=== PATIENT | female | born 1940 | race Caucasian/White ===

== ENCOUNTER 2019-06-29 10:09 | Emergency (ER) | payer MEDICARE ==
[~2019-06-29 10:09] MED LIST: CALC-1030 PO; CLOB15CR5 TP; ERGO500014 PO; IBUP-2076 PO; LOVA40TA2 PO; OMEP40CA13 PO; PARO10TA87 PO; ROPI1TAB38 PO; TRAZ-185 PO
[2019-06-29 10:31] LABS: BASOPHILS % (AUTO) 0.3 % (0.0-5.0); EOSINOPHILS % (AUTO) 0.5 % (0.0-8.0); LYMPHOCYTES % (AUTO) 16.6 % (21.0-51.0); MEAN CORPUSCULAR HEMOGLOBIN 28.4 pg (27.0-33.0); MEAN CORPUSCULAR HGB CONC 32.4 g/dL (32.0-36.0); MEAN CORPUSCULAR VOLUME 87.6 fL (79-99); MONOCYTES % (AUTO) 9.8 % (3.0-13.0); NEUTROPHILS % (AUTO) 72.2 % (40.0-77.0); PLATELET COUNT (AUTO) 199 K/uL (130-400); RED BLOOD CELL COUNT(AUTO) 4.68 MIL/uL (4.00-5.50); RED CELL DISTRIBUTION WIDTH 13.6 % (11.0-15.5); WHITE BLOOD COUNT (AUTO) 6.6 K/uL (4.8-10.8)
[2019-06-29 10:43] LABS: CREATININE 1.2 mg/dL (0.5-1.5)
[2019-06-29 10:46] LABS: INR 0.95 (0.85-1.15); PARTIAL THROMBOPLASTIN TIME 24.8 SEC (26.3-35.5)
[2019-06-29 10:54] LABS: ALBUMIN 3.8 g/dL (3.5-5.0); BILIRUBIN,TOTAL 0.7 mg/dL (0.2-1.0)
[2019-06-29] MEDS ORDERED: AMLODIPINE BESYLATE 5 MG TAB ONE (11:21)
[2019-06-29 11:30] LABS: APPEARANCE,URINE Clear (CLEAR); BILIRUBIN,URINE Negative (NEGATIVE); COLOR,URINE Yellow (YELLOW); GLUCOSE, URINE (UA) Negative (NEGATIVE); KETONES,URINE Negative (NEGATIVE); LEUKOCYTE ESTERASE ,URINE Trace (NEGATIVE); NITRATE,URINE Negative (NEGATIVE); OCCULT BLOOD,URINE Negative (NEGATIVE); PH,URINE 6.5 (5.0-8.0); PROTEIN,URINE Negative (NEGATIVE)
[2019-06-29 11:38] LABS: BACTERIA,URINE None Seen /HPF (None Seen); MUCUS,URINE Rare LPF (None Seen); RBC,URINE 0-1 /HPF (0-1); SQUAMOUS EPITHELIAL CELL,UR Few /HPF (0-2); WBC,URINE 0-1 /HPF (0-1)
[2019-06-29] MEDS ORDERED: ACETAMINOPHEN 325 MG TAB ONE (12:54)
== END 2019-06-29 13:06 | disposition home or self-care (01) ==
LOC: EDH 10:09
DX: I10 Essential (primary) hypertension (principal); R51 Headache; R79.1 Abnormal coagulation profile; Z88.8 Allergy status to other drugs, medicaments and biological substances
CPT/HCPCS: 36415; 70450; 80053; 81001; 82550; 84484; 85025; 85610; 85730; 93005

== ENCOUNTER 2022-09-07 09:00 | Observation (INO) | payer MEDICARE ==
[2022-09-06 10:31] LABS: APPEARANCE,URINE CLEAR (CLEAR); BILIRUBIN,URINE NEGATIVE (NEGATIVE); COLOR,URINE YELLOW (YELLOW); GLUCOSE, URINE (UA) NEGATIVE (NEGATIVE); KETONES,URINE NEGATIVE (NEGATIVE); LEUKOCYTE ESTERASE ,URINE 75 Leu/uL (NEGATIVE); NITRATE,URINE NEGATIVE (NEGATIVE); OCCULT BLOOD,URINE NEGATIVE (NEGATIVE); PH,URINE 5.5 (5.0-8.0); PROTEIN,URINE NEGATIVE (NEGATIVE); UROBILINOGEN,URINE 0.2 mg/dL (0.2-1.0)
[2022-09-06 10:36] LABS: BASOPHILS % (AUTO) 0.8 % (0.0-5.0); EOSINOPHILS % (AUTO) 4.2 % (0.0-8.0); HEMATOCRIT 46.9 % (36-48); LYMPHOCYTES % (AUTO) 18.9 % (21.0-51.0); MEAN CORPUSCULAR HEMOGLOBIN 30.5 pg (27.0-33.0); MEAN CORPUSCULAR HGB CONC 31.6 g/dL (32.0-36.0); MEAN CORPUSCULAR VOLUME 96.5 fL (79-99); MONOCYTES % (AUTO) 10.7 % (3.0-13.0); PLATELET COUNT (AUTO) 184 K/uL (130-400); RED BLOOD CELL COUNT(AUTO) 4.86 MIL/uL (4.00-5.50); RED CELL DISTRIBUTION WIDTH 12.3 % (11.0-15.5); WHITE BLOOD COUNT (AUTO) 7.7 K/uL (4.8-10.8)
[2022-09-06 10:39] LABS: MUCUS,URINE RARE LPF (None Seen); SQUAMOUS EPITHELIAL CELL,UR RARE /HPF (0-2); TRANSITIONAL EPI CELLS,URINE FEW /HPF (None Seen)
[2022-09-06 10:55] LABS: INR 0.94 (0.85-1.15); PROTHROMBIN TIME 10.3 SEC (9.6-11.6)
[2022-09-06 10:56] LABS: ALBUMIN 4.1 g/dL (3.5-5.0); CARBON DIOXIDE 32 mmol/L (21-32); CHLORIDE 105 mmol/L (101-111); CREATININE 1.2 mg/dL (0.5-1.5); GLOMERULAR FILTR. RATE CALC 45 mL/min (>90); GLUCOSE,RANDOM 108 mg/dL (70-105); PARTIAL THROMBOPLASTIN TIME 28.3 SEC (26.3-35.5); POTASSIUM 4.1 mmol/L (3.5-5.1); SODIUM SERUM 143 mmol/L (136-145); UREA NITROGEN, BLOOD 22 mg/dL (7-18)
[2022-09-06 11:04] LABS: CRP QUANTITATIVE < 2.00 mg/L (0.00-9.0)
[~2022-09-07] VITALS: Ht 154.9 cm; Wt 45.8 kg
[2022-09-07] MEDS: CEFAZOLIN SODIUM 1 GM VIAL IVPB SCH (06:00)
[~2022-09-07 09:00] MED LIST changes: -CALC-1030 PO; -CLOB15CR5 TP; -ERGO500014 PO; -IBUP-2076 PO; -LOVA40TA2 PO; -OMEP40CA13 PO; +PARO-159 PO; -PARO10TA87 PO; -ROPI1TAB38 PO
[2022-09-08] VITALS (27 sets, daily range): BP systolic 128–178; BP diastolic 52–88
[2022-09-08] MEDS ORDERED: CEFAZOLIN SODIUM 2 GM VIAL ONE (06:19)
[2022-09-08] MEDS ORDERED: LACTATED RINGERS 1000ML 1,000 ML IV ONE (06:19)
[2022-09-08] MEDS ORDERED: PROPOFOL 10 MG/ML 20ML VIAL IV ONE (06:56)
[2022-09-08] MEDS ORDERED: DEXAMETHASONE SOD PHOSPHATE 10MG/ML 1ML VIAL ONE (06:56)
[2022-09-08] MEDS ORDERED: FENTANYL CITRATE PF 50 MCG/1 ML 2ML VIAL ONE (06:57)
[2022-09-08] MEDS ORDERED: ROPIVACAINE 0.5% 5MG/ML 30ML IJ ONE (06:57)
[2022-09-08] MEDS ORDERED: ROCURONIUM 10MG/1ML SYR 10 MG/ML ML ONE (06:57)
[2022-09-08] MEDS ORDERED: ONDANSETRON 4MG INJ ONE (06:57)
[2022-09-08] MEDS ORDERED: MIDAZOLAM HCL 1 MG/ML 2ML VIAL ONE (07:01)
[2022-09-08] MEDS: CEFAZOLIN SODIUM 1 GM VIAL IVPB SCH ×3 (07:40→23:29)
[2022-09-08] MEDS ORDERED: TRANEXAMIC ACID 1000MG/10ML ONE ×2 (08:09→08:35)
[2022-09-08] MEDS ORDERED: EPHEDRINE SULFATE 50 MG/ML AMPULE ONE (08:10)
[2022-09-08] MEDS ORDERED: PHENYLEPHRINE HCL 10 MG/ML 1ML VIAL IV ONE (08:25)
[2022-09-08] MEDS ORDERED: GLYCOPYRROLATE 1 MG/5 ML SYRINGE ONE (09:37)
[2022-09-08] MEDS ORDERED: NEOSTIGMINE 5MG/5ML SYR IV ONE (09:37)
[2022-09-08] MEDS ORDERED: TRANEXAMIC ACID 1000MG/10ML IV ONE (10:00)
[2022-09-08] MEDS ORDERED: FE FUMARATE/FA/MV, MIN COMB#15 1 TAB PO PRN (10:30)
[2022-09-08] MEDS ORDERED: CALCIUM CARB 500MG PO PRN (10:30)
[2022-09-08] MEDS ORDERED: POTASSIUM CHLORIDE 20MEQ/100ML 100 ML IV PRN (10:30)
[2022-09-08] MEDS: 0.9%NACL 1000ML 1,000 ML IV SCH ×2 (10:30→20:30)
[2022-09-08] MEDS ORDERED: TRAMADOL HCL 50 MG TABLET PO PRN (10:30)
[2022-09-08] MEDS ORDERED: ONDANSETRON 4MG INJ IVP PRN (10:30)
[2022-09-08] MEDS ORDERED: KCL 20 MEQ ERTAB PO PRN (10:30)
[2022-09-08] MEDS: KETOROLAC 15MG/ML VIAL (15MG/ML) IV SCH ×2 (10:30→19:21)
[2022-09-08] MEDS ORDERED: DiphenhydrAMINE HCL 50 MG/ML VIAL IVP PRN (10:30)
[2022-09-08] MEDS ORDERED: POTASSIUM CHLORIDE 10% ELIXIR 20 MEQ/15 ML UDCUP PO PRN (10:30)
[2022-09-08] MEDS: ACETAMINOPHEN 500 MG TABLET PO SCH ×2 (10:30→19:22)
[2022-09-08] MEDS: DOCUSATE SODIUM 100 MG CAP PO SCH (20:35)
[2022-09-09 01:07] VITALS: BP 128/62
[2022-09-09] MEDS: KETOROLAC 15MG/ML VIAL (15MG/ML) IV SCH (01:45)
[2022-09-09] MEDS: GABAPENTIN 100 MG CAPSULE PO SCH ×3 (02:15→17:48)
[2022-09-09] MEDS: ACETAMINOPHEN 500 MG TABLET PO SCH ×3 (02:16→17:49)
[2022-09-09] MEDS ORDERED: HYDROMORPHONE 0.5 MG SYG (0.5MG/0.5ML) IVP ONE (02:30)
[2022-09-09] MEDS: 0.9%NACL 1000ML 1,000 ML IV SCH (02:31)
[2022-09-09 03:45] VITALS: BP 126/58
[2022-09-09 04:26] LABS: HEMATOCRIT 32.9 % (36-48); MEAN CORPUSCULAR HEMOGLOBIN 30.8 pg (27.0-33.0); MEAN CORPUSCULAR HGB CONC 33.4 g/dL (32.0-36.0); MEAN CORPUSCULAR VOLUME 92.2 fL (79-99); RED BLOOD CELL COUNT(AUTO) 3.57 MIL/uL (4.00-5.50); RED CELL DISTRIBUTION WIDTH 12.1 % (11.0-15.5); WHITE BLOOD COUNT (AUTO) 13.5 K/uL (4.8-10.8)
[2022-09-09 04:35] LABS: CREATININE 1.2 mg/dL (0.5-1.5); POTASSIUM 4.5 mmol/L (3.5-5.1)
[2022-09-09] MEDS: TRAMADOL HCL 50 MG TABLET PO PRN ×2 (04:58→11:25)
[2022-09-09 08:00] VITALS: BP 113/50
[2022-09-09] MEDS ORDERED: POLYETHYLENE GLYCOL 3350 17 GM POWD.PACK PO SCH (09:00)
[2022-09-09] MEDS: DOCUSATE SODIUM 100 MG CAP PO SCH (11:23)
[2022-09-09 12:00] VITALS: BP 105/54
[2022-09-09] MEDS ORDERED: TRAM50TA4 PO (15:58)
[2022-09-09] MEDS ORDERED: DOCU-116 PO (15:58)
[2022-09-09] MEDS ORDERED: GABA100C PO (15:58)
[2022-09-09] MEDS ORDERED: ACET-2743 PO (15:58)
[2022-09-11] MEDS ORDERED: BISACODYL 10 MG SUPP.RECT RC PRN (10:30)
== END 2022-09-09 18:10 | disposition home health service (06) ==
LOC: EDSTATUS 09:00 → DAHIP 09-08 06:03 → 4DH 09-08 11:20
PROVIDERS: ADMIT Student in an Organized Health Care Education/Training Program; ATTEND Student in an Organized Health Care Education/Training Program
DX: M19.011 Primary osteoarthritis, right shoulder (principal); Z20.822 Contact with and (suspected) exposure to COVID-19; M75.101 Unspecified rotator cuff tear or rupture of right shoulder, not specified as traumatic; D62 Acute posthemorrhagic anemia; F03.90 Unspecified dementia, unspecified severity, without behavioral disturbance, psychotic disturbance, mood disturbance, and anxiety; E78.5 Hyperlipidemia, unspecified; F32.A Depression, unspecified; Z79.899 Other long term (current) drug therapy
CPT/HCPCS: 82040; 80048 ×2; 85025; 85610; 85730; 87088; 84134; 86140; 87426; 81001; 36415 ×2; 87641; 23472; 64415; 96365; 96366; 96375 ×2; 73030; 97161; 97039 ×3; 97530 ×3; 96376; 85027; 97116; G0378 ×31; A4663; J7030; A4565; C1776; J7120; J3010; J0690 ×3; J3490 ×5; J1100; J2710; J2250; J2704; J2405; J2795; J1885 ×2; J2370; G0168; A4930; A6254; A5120; A4215; A4223; A4222; A4221; A4600; J1170